=== PATIENT | female | born 1935 | race Caucasian/White ===

== ENCOUNTER → 2017-12-27 | Outpatient (CLI) | payer OTHER | END | disposition home or self-care (01) | LOC: EKG 09:57 → RAD 11:00 | DX: J84.9 Interstitial pulmonary disease, unspecified (principal); I51.7 Cardiomegaly; I70.0 Atherosclerosis of aorta; I05.1 Rheumatic mitral insufficiency; I07.1 Rheumatic tricuspid insufficiency; I05.8 Other rheumatic mitral valve diseases; I09.89 Other specified rheumatic heart diseases; I51.89 Other ill-defined heart diseases | CPT/HCPCS: 71250; 93306 ==